=== PATIENT | male | born 1960 | race African-American/Black ===

== ENCOUNTER 2018-07-20 19:46 | Inpatient (IN) | payer MEDICARE, OTHER, SELFPAY ==
[~2018-07-20] VITALS: Ht 200.7 cm; Wt 77.0 kg
[2018-07-20 20:34] LABS: INTERNATIONAL NORMALIZED RATIO 0.94 (0.93-1.1)
[2018-07-20 20:36] LABS: ALANINE AMINOTRANSFERASE 55 U/L (12-78); ALBUMIN 3.2 g/dL (3.4-5.0); ANION GAP 10 mmol/L (5-15); CALCIUM 8.2 mg/dL (8.5-10.1); CHLORIDE 108 mmol/L (98-107); CREATININE 1.29 mg/dL (0.7-1.3)
[2018-07-20 20:39] LABS: ALKALINE PHOSPHATASE 138 U/L (45-117); BILIRUBIN,TOTAL 1.4 mg/dL (0.2-1.0); TOTAL PROTEIN 8.1 g/dL (6.4-8.2)
[2018-07-20 21:00] LABS: BASOPHILS # (AUTO) 0.01 x10^3/uL (0-0.1); BASOPHILS % (AUTO) 0 % (0-1); EOSINOPHILS # (AUTO) 0.01 x10^3/uL (0-0.4); EOSINOPHILS % (AUTO) 1 % (1-7); LYMPHOCYTES # (AUTO) 0.79 x10^3/uL (1-3.4); LYMPHOCYTES % (AUTO) 26 % (22-44); MD MORPH REVIEW ONLY; MEAN CORPUSCULAR HEMOGLOBIN 35.3 pg (27.5-34.5); MEAN CORPUSCULAR HGB CONC 34.1 g/dL (33.2-36.2); MEAN CORPUSCULAR VOLUME 103.5 fL (81-97); MEAN PLATELET VOLUME 9.3 fL (7.4-10.4); MONOCYTES # (AUTO) 0.32 x10^3/uL (0.2-0.8); MONOCYTES % (AUTO) 10 % (2-9); NEUTROPHILS # (AUTO) 1.92 x10^3/uL (1.8-6.8); NEUTROPHILS % (AUTO) 63 % (42-75); RED BLOOD COUNT 4.02 x10^6/uL (4.38-5.82); RED CELL DISTRIBUTION WIDTH 14.7 % (9.4-14.8)
[2018-07-20 21:01] LABS: PLATELET COUNT 17 x10^3/uL (130-400)
[2018-07-20 21:02] LABS: ANISOCYTOSIS 1+
[2018-07-20 21:03] LABS: <PLATELET ESTIMATE> DECREASED; <PLT MORPHOLOGY> NORMAL PLT MORPH
[2018-07-20 21:11] LABS: MICROSCOPIC INDICATED
[2018-07-20 21:12] LABS: CULTURE INDICATED? YES
[2018-07-20] MEDS ORDERED: NS + 40MEQ KCL 1,000 ML IV ONE ×2 (21:30→21:49)
[2018-07-20] MEDS ORDERED: PANTOPRAZOLE 40 MG IV IVP ONE (21:30)
[2018-07-20] MEDS ORDERED: PANTOPRAZOLE 40 MG IV ONE (21:36)
[2018-07-20] MEDS ORDERED: ALBU6.7H INH (21:47)
[2018-07-20] MEDS ORDERED: CYAN100014 PO (21:47)
[2018-07-20] MEDS ORDERED: MU V PO (21:47)
[2018-07-20] MEDS ORDERED: OMEP-110 PO (21:47)
[2018-07-20] MEDS ORDERED: ONDA8TAB9 PO (21:47)
[2018-07-20] MEDS ORDERED: SODIUM CHLORIDE FLUSH 10ML SYR IVF PRN (22:00)
[2018-07-20 23:00] VITALS: BP 181/97
[2018-07-20 23:18] VITALS: BP 180/87
[2018-07-20] MEDS ORDERED: MAGNESIUM SULFATE PMX 2GM/50ML 50 ML IV ONE (23:30)
[2018-07-20] MEDS ORDERED: BISACODYL 10 MG SUPP PR PRN (23:30)
[2018-07-20] MEDS ORDERED: POLYETHYLENE GLYCOL 17 GM PACKET PO PRN (23:30)
[2018-07-20] MEDS ORDERED: ALBUTEROL SULFATE 2.5 MG/3 ML NPPB PRN (23:45)
[2018-07-21] VITALS (9 sets, daily range): BP systolic 146–181; BP diastolic 72–97
[2018-07-21] MEDS: hydrALAzine 20 MG/ML, 1ML IV PRN ×2 (00:14→14:36)
[2018-07-21] MEDS: POTASSIUM CHLORIDE 20 MEQ, MAGNESIUM SULFATE 1 GM, THIAMINE 200 MG, FOLIC ACID 1 MG, MV... IV SCH (02:33)
[2018-07-21 05:40] LABS: MEAN CORPUSCULAR HEMOGLOBIN 35.8 pg (27.5-34.5); MEAN CORPUSCULAR HGB CONC 34.6 g/dL (33.2-36.2); MEAN CORPUSCULAR VOLUME 103.5 fL (81-97); RED BLOOD COUNT 3.64 x10^6/uL (4.38-5.82); RED CELL DISTRIBUTION WIDTH 14.9 % (9.4-14.8)
[2018-07-21 05:42] LABS: ANION GAP 9 mmol/L (5-15); CALCIUM 7.8 mg/dL (8.5-10.1); CHLORIDE 113 mmol/L (98-107)
[2018-07-21 05:45] LABS: ALANINE AMINOTRANSFERASE 50 U/L (12-78); ALKALINE PHOSPHATASE 121 U/L (45-117); BILIRUBIN,TOTAL 1.5 mg/dL (0.2-1.0); CREATININE 0.94 mg/dL (0.7-1.3); TOTAL PROTEIN 7.2 g/dL (6.4-8.2)
[2018-07-21 05:56] LABS: CLOSTRIDIUM DIFFICILE ANTIGEN NEGATIVE; CLOSTRIDIUM DIFFICILE TOXIN NEGATIVE (Negative)
[2018-07-21] MEDS: CEFTRIAXONE PMX 1GM/50ML 50 ML IV SCH (06:01)
[2018-07-21 06:07] LABS: BASOPHILS # (AUTO) 0.01 x10^3/uL (0-0.1); BASOPHILS % (AUTO) 0 % (0-1); EOSINOPHILS # (AUTO) 0.04 x10^3/uL (0-0.4); EOSINOPHILS % (AUTO) 1 % (1-7); LYMPHOCYTES # (AUTO) 1.14 x10^3/uL (1-3.4); LYMPHOCYTES % (AUTO) 33 % (22-44); MD SCAN; MEAN PLATELET VOLUME 9.3 fL (7.4-10.4); MONOCYTES # (AUTO) 0.35 x10^3/uL (0.2-0.8); MONOCYTES % (AUTO) 10 % (2-9); NEUTROPHILS # (AUTO) 1.91 x10^3/uL (1.8-6.8); NEUTROPHILS % (AUTO) 55 % (42-75)
[2018-07-21 06:09] LABS: PLATELET COUNT 39 x10^3/uL (130-400)
[2018-07-21] MEDS: SENNA/DOCUSATE TABLET PO SCH (07:52)
[2018-07-21] MEDS ORDERED: POTASSIUM CHLORIDE 40 MEQ in SODIUM CHLORIDE 0.9% 500 ML IV ONE (08:30)
[2018-07-21] MEDS ORDERED: NICOTINE 14MG/24 HR PATCH.TD24 TD ONE (08:30)
[2018-07-21] MEDS ORDERED: PANTOPRAZOLE 40 MG IV IVPush SCH (09:00)
[2018-07-21] MEDS ORDERED: hydrALAzine 20 MG/ML, 1ML IV PRN (09:00)
[2018-07-21] MEDS ORDERED: POTASSIUM CHLORIDE 20 MEQ, MAGNESIUM SULFATE 1 GM, MVI ADULT 10 ML, THIAMINE 200 MG, FO... IV SCH (09:00)
[2018-07-21] MEDS ORDERED: HALOPERIDOL 5 MG/ML IM PRN (09:00)
[2018-07-21] MEDS: OCTREOTIDE 500 MCG in SODIUM CHLORIDE 0.9% 249 ML IV SCH (09:34)
[2018-07-21] MEDS: ONDANSETRON ODT 4 MG PO PRN ×3 (10:21→21:13)
[2018-07-21] MEDS ORDERED: OMNIPAQUE 350 MG/ML, 100ML BOTTLE ONE (11:47)
[2018-07-21] MEDS ORDERED: PANTOPROZOLE 40MG TABLET PO SCH (17:00)
[2018-07-21] MEDS: LORazepam 2 MG/ML, 1ML IVPush PRN (17:16)
[2018-07-21] MEDS ORDERED: ONDANSETRON 2MG/ML, 2ML IVPush PRN (22:00)
[2018-07-22] VITALS (7 sets, daily range): BP systolic 129–177; BP diastolic 78–103
[2018-07-22] MEDS: LORazepam 2 MG/ML, 1ML IVPush PRN (01:31)
[2018-07-22 04:40] LABS: MEAN CORPUSCULAR HEMOGLOBIN 35.3 pg (27.5-34.5); MEAN CORPUSCULAR HGB CONC 34.5 g/dL (33.2-36.2); MEAN CORPUSCULAR VOLUME 102.5 fL (81-97); RED BLOOD COUNT 3.51 x10^6/uL (4.38-5.82); RED CELL DISTRIBUTION WIDTH 15.3 % (9.4-14.8)
[2018-07-22 04:49] LABS: ALANINE AMINOTRANSFERASE 43 U/L (12-78); ALBUMIN 2.7 g/dL (3.4-5.0); ANION GAP 9 mmol/L (5-15); CALCIUM 8.1 mg/dL (8.5-10.1); CHLORIDE 110 mmol/L (98-107); CREATININE 0.93 mg/dL (0.7-1.3); PLATELET COUNT 26 x10^3/uL (130-400)
[2018-07-22 04:52] LABS: ALKALINE PHOSPHATASE 116 U/L (45-117); BILIRUBIN,TOTAL 1.2 mg/dL (0.2-1.0)
[2018-07-22 04:54] LABS: BASOPHILS # (AUTO) 0.01 x10^3/uL (0-0.1); BASOPHILS % (AUTO) 1 % (0-1); EOSINOPHILS # (AUTO) 0.04 x10^3/uL (0-0.4); EOSINOPHILS % (AUTO) 2 % (1-7); LYMPHOCYTES # (AUTO) 0.84 x10^3/uL (1-3.4); LYMPHOCYTES % (AUTO) 35 % (22-44); MD SCAN; MONOCYTES # (AUTO) 0.31 x10^3/uL (0.2-0.8); MONOCYTES % (AUTO) 13 % (2-9); NEUTROPHILS # (AUTO) 1.19 x10^3/uL (1.8-6.8); NEUTROPHILS % (AUTO) 50 % (42-75)
[2018-07-22] MEDS: OCTREOTIDE 500 MCG in SODIUM CHLORIDE 0.9% 249 ML IV SCH (05:31)
[2018-07-22] MEDS: PANTOPRAZOLE 40 MG IV IVPush SCH ×2 (06:09→17:24)
[2018-07-22] MEDS: CEFTRIAXONE PMX 1GM/50ML 50 ML IV SCH (06:09)
[2018-07-22] MEDS: SENNA/DOCUSATE TABLET PO SCH (09:00)
[2018-07-22] MEDS ORDERED: ACETAMINOPHEN 325 MG TABLET PO ONE (10:30)
[2018-07-22] MEDS: POTASSIUM CHLORIDE 20 MEQ, MAGNESIUM SULFATE 1 GM, THIAMINE 200 MG, FOLIC ACID 1 MG, MV... IV SCH (11:40)
[2018-07-22] MEDS ORDERED: PROPOFOL 10 MG/ML, 20ML ONE (13:25)
[2018-07-22] MEDS ORDERED: LABETALOL 5MG/ML, 20ML IV PRN (13:30)
[2018-07-22] MEDS ORDERED: hydrALAzine 20 MG/ML, 1ML IV PRN (13:30)
[2018-07-22] MEDS ORDERED: ALBUTEROL SULFATE 2.5 MG/3 ML NPPB PRN (13:30)
[2018-07-22] MEDS ORDERED: hydrALAzine 20 MG/ML, 1ML ONE (14:14)
[2018-07-22] MEDS: OMEPRAZOLE 20 MG CAPSULE.DR PO SCH (20:17)
[2018-07-23 00:12] VITALS: BP 155/75
[2018-07-23] MEDS: OCTREOTIDE 500 MCG in SODIUM CHLORIDE 0.9% 249 ML IV SCH (01:33)
[2018-07-23 03:50] VITALS: BP 162/78
[2018-07-23] MEDS: OMEPRAZOLE 20 MG CAPSULE.DR PO SCH (05:54)
[2018-07-23] MEDS: CEFTRIAXONE PMX 1GM/50ML 50 ML IV SCH (05:54)
[2018-07-23] MEDS: PANTOPRAZOLE 40 MG IV IVPush SCH ×3 (05:54→20:31)
[2018-07-23 07:23] VITALS: BP 162/95
[2018-07-23 08:02] LABS: ANION GAP 8 mmol/L (5-15); CALCIUM 8.2 mg/dL (8.5-10.1); CHLORIDE 110 mmol/L (98-107); CREATININE 1.06 mg/dL (0.7-1.3)
[2018-07-23 08:12] LABS: BASOPHILS # (AUTO) 0.02 x10^3/uL (0-0.1); BASOPHILS % (AUTO) 1 % (0-1); EOSINOPHILS # (AUTO) 0.03 x10^3/uL (0-0.4); EOSINOPHILS % (AUTO) 1 % (1-7); LYMPHOCYTES # (AUTO) 0.87 x10^3/uL (1-3.4); LYMPHOCYTES % (AUTO) 27 % (22-44); MD SCAN; MEAN CORPUSCULAR HEMOGLOBIN 34.5 pg (27.5-34.5); MEAN CORPUSCULAR HGB CONC 33.8 g/dL (33.2-36.2); MEAN CORPUSCULAR VOLUME 102.3 fL (81-97); MEAN PLATELET VOLUME 8.4 fL (7.4-10.4); MONOCYTES # (AUTO) 0.53 x10^3/uL (0.2-0.8); MONOCYTES % (AUTO) 16 % (2-9); NEUTROPHILS # (AUTO) 1.81 x10^3/uL (1.8-6.8); NEUTROPHILS % (AUTO) 56 % (42-75); PLATELET COUNT 51 x10^3/uL (130-400); RED BLOOD COUNT 3.62 x10^6/uL (4.38-5.82); RED CELL DISTRIBUTION WIDTH 15.3 % (9.4-14.8)
[2018-07-23] MEDS: POTASSIUM CHLORIDE 20 MEQ, MAGNESIUM SULFATE 1 GM, THIAMINE 200 MG, FOLIC ACID 1 MG, MV... IV SCH (10:49)
[2018-07-23] MEDS: SENNA/DOCUSATE TABLET PO SCH (10:49)
[2018-07-23] MEDS ORDERED: NITROGLYCERIN 0.4 MG BOTTLE (25 TABS) SL ONE (11:32)
[2018-07-23] MEDS ORDERED: MORPHINE SULFATE 4 MG/ML, 1ML ONE (11:38)
[2018-07-23 11:52] LABS: TROPONIN I < 0.015 ng/mL (0.000-0.045)
[2018-07-23] MEDS ORDERED: DIPHENHYDRAMINE 50 MG/ML, 1ML ONE (11:55)
[2018-07-23] MEDS ORDERED: FENTANYL PF 100 MCG/2ML ONE (11:55)
[2018-07-23] MEDS ORDERED: MIDAZOLAM 1 MG/ML, 5ML ONE (11:55)
[2018-07-23] MEDS ORDERED: VERAPAMIL 2.5 MG/ML, 2ML ONE (11:56)
[2018-07-23] MEDS ORDERED: LIDOCAINE 2%, 20ML ONE (11:56)
[2018-07-23] MEDS ORDERED: HEPARIN 1,000 UNITS/ML, 10ML ONE (11:56)
[2018-07-23 12:00] LABS: MD YES; MEAN CORPUSCULAR HEMOGLOBIN 35.1 pg (27.5-34.5); MEAN CORPUSCULAR HGB CONC 34.1 g/dL (33.2-36.2); MEAN CORPUSCULAR VOLUME 102.8 fL (81-97); MEAN PLATELET VOLUME 8.3 fL (7.4-10.4); PLATELET COUNT 54 x10^3/uL (130-400); RED BLOOD COUNT 3.56 x10^6/uL (4.38-5.82)
[2018-07-23] MEDS ORDERED: morphine SULFATE 10 MG/ML, 1ML IVPush ONE (12:00)
[2018-07-23 12:02] LABS: BAND#(MANUAL) 0.03 x10^3/uL; BANDS%(MANUAL) 1 % (0-7); LYMPH#(MANUAL) 1.12 x10^3/uL (1-3.4); LYMPHS% (MANUAL) 35 % (22-44); MONOS#(MANUAL) 0.67 x10^3/uL (0.3-2.7); MONOS% (MANUAL) 21 % (2-9); REACTIVE LYMPHS # (MANUAL) 0.06 x10^3/uL (0-0); REACTIVE LYMPHS % (MANUAL) 2 % (0-0); SEG#(MANUAL) 1.31 x10^3/uL (1.8-6.8); SEGS% (MANUAL) 41 % (42-75)
[2018-07-23 12:03] LABS: <PLATELET ESTIMATE> DECREASED; <PLT MORPHOLOGY> NORMAL PLT MORPH; ANISOCYTOSIS 1+
[2018-07-23] MEDS ORDERED: LABETALOL 20 MG/4 ML ONE (12:22)
[2018-07-23] MEDS ORDERED: hydrALAzine 20 MG/ML, 1ML ONE (12:29)
[2018-07-23] MEDS: SODIUM CHLORIDE 0.9% 1,000 ML IV SCH ×2 (12:33→20:26)
[2018-07-23] MEDS ORDERED: METOPROLOL 1 MG/ML, 5ML IVPush PRN (15:00)
[2018-07-23 17:34] LABS: TROPONIN I < 0.015 ng/mL (0.000-0.045)
[2018-07-23 20:17] VITALS: BP 169/71
[2018-07-24 02:00] VITALS: BP 150/64
[2018-07-24] MEDS: SODIUM CHLORIDE 0.9% 1,000 ML IV SCH (04:33)
[2018-07-24 06:09] LABS: CHLORIDE 110 mmol/L (98-107)
[2018-07-24 06:16] LABS: MEAN CORPUSCULAR HEMOGLOBIN 35.4 pg (27.5-34.5); MEAN CORPUSCULAR HGB CONC 34.6 g/dL (33.2-36.2); MEAN CORPUSCULAR VOLUME 102.4 fL (81-97); RED BLOOD COUNT 3.33 x10^6/uL (4.38-5.82); RED CELL DISTRIBUTION WIDTH 15.1 % (9.4-14.8)
[2018-07-24 06:21] LABS: ALANINE AMINOTRANSFERASE 37 U/L (12-78); ALBUMIN 2.8 g/dL (3.4-5.0); ALKALINE PHOSPHATASE 106 U/L (45-117); ANION GAP 6 mmol/L (5-15); BILIRUBIN,TOTAL 1.2 mg/dL (0.2-1.0); CALCIUM 7.9 mg/dL (8.5-10.1); TROPONIN I < 0.015 ng/mL (0.000-0.045)
[2018-07-24 06:36] LABS: MD YES
[2018-07-24 06:39] LABS: MEAN PLATELET VOLUME 8.4 fL (7.4-10.4)
[2018-07-24 06:40] VITALS: BP 142/68
[2018-07-24 06:41] LABS: PLATELET COUNT 47 x10^3/uL (130-400)
[2018-07-24 06:42] LABS: <PLATELET ESTIMATE> DECREASED; <PLT MORPHOLOGY> NORMAL PLT MORPH; ANISOCYTOSIS 1+; LYMPH#(MANUAL) 0.86 x10^3/uL (1-3.4); LYMPHS% (MANUAL) 27 % (22-44); MONOS#(MANUAL) 0.48 x10^3/uL (0.3-2.7); MONOS% (MANUAL) 15 % (2-9); SEG#(MANUAL) 1.86 x10^3/uL (1.8-6.8); SEGS% (MANUAL) 58 % (42-75)
[2018-07-24] MEDS ORDERED: POTASSIUM CHLORIDE 20 MEQ TAB.ER.PRT PO ONE (07:30)
[2018-07-24] MEDS ORDERED: FOLI-17 PO (08:21)
[2018-07-24] MEDS ORDERED: OMEP-110 PO (08:21)
[2018-07-24] MEDS ORDERED: THIA100T10 PO (08:21)
[2018-07-24] MEDS: SENNA/DOCUSATE TABLET PO SCH (09:00)
[2018-07-24] MEDS ORDERED: NICO-485 TD (09:57)
[2018-07-24] MEDS ORDERED: NICOTINE 7 MG/24 HR PATCH.TD24 TD SCH (10:00)
== END 2018-07-24 13:07 | disposition home or self-care (01) | DRG 871 ==
LOC: ED 21:45 → EDIP 22:25 → 4NOR 23:35 → 5SO 07-23 13:07
PROVIDERS: ADMIT Internal Medicine; ATTEND Internal Medicine
PROC: 30233R1 Transfusion of Nonautologous Platelets into Peripheral Vein, Percutaneous Approach (ICD-10-PCS; 2018-07-20)
PROC: 0DJ68ZZ Inspection of Stomach, Via Natural or Artificial Opening Endoscopic (ICD-10-PCS; 2018-07-22)
PROC: 4A023N7 Measurement of Cardiac Sampling and Pressure, Left Heart, Percutaneous Approach (ICD-10-PCS; principal; 2018-07-23)
PROC: B2111ZZ Fluoroscopy of Multiple Coronary Arteries using Low Osmolar Contrast (ICD-10-PCS; 2018-07-23)
PROC: B2151ZZ Fluoroscopy of Left Heart using Low Osmolar Contrast (ICD-10-PCS; 2018-07-23)
DX: A41.9 Sepsis, unspecified organism (principal); K29.71 Gastritis, unspecified, with bleeding; K29.81 Duodenitis with bleeding; D69.3 Immune thrombocytopenic purpura; N39.0 Urinary tract infection, site not specified; D61.818 Other pancytopenia; C61 Malignant neoplasm of prostate; D75.89 Other specified diseases of blood and blood-forming organs; E53.8 Deficiency of other specified B group vitamins; E83.42 Hypomagnesemia; E87.6 Hypokalemia; F12.10 Cannabis abuse, uncomplicated; F17.290 Nicotine dependence, other tobacco product, uncomplicated; I10 Essential (primary) hypertension; J45.909 Unspecified asthma, uncomplicated; K70.10 Alcoholic hepatitis without ascites; Z79.899 Other long term (current) drug therapy; Z88.6 Allergy status to analgesic agent; F10.20 Alcohol dependence, uncomplicated; Y90.9 Presence of alcohol in blood, level not specified
CPT/HCPCS: 36415; 36430; 71045; 74177; 80048; 80053; 80307; 81001; 83690; 83735; 84100; 84484; 85025; 85610; 86850; 86900; 87040; 87086; 87324; 93005; 93458; 96374; 96375; 99156; C1760; C1769; C1894; G0378; J0696; J1644; J2250; J2354; J2704; J3010; J3411; J3475; J3480; J3490; Q0162; Q9967; C9113; J0360; J1200; J2060; J2270; J7030; J7040; J7050; P9035